=== PATIENT | female | born 2000 | race Caucasian/White ===

== ENCOUNTER 2025-06-02 20:31 | Emergency (ER) | payer OTHER ==
[~2025-06-02] VITALS: Ht 167.6 cm; Wt 65.0 kg
[2025-06-02 20:34] VITALS: BP 151/107; PULSE 83; RESP 14; TEMP 98.2; O2SAT 100
[2025-06-02] MEDS: ACETAMINOPHEN 500MG TABLET PO ONE (22:02)
[2025-06-02 22:38] LABS: HCG SCREEN NEGATIVE
[2025-06-03 00:23] LABS: CLARITY URINE CLEAR (CLEAR); COLOR URINE YELLOW (YELLOW); GLUCOSE URINE NEGATIVE (NEGATIVE); KETONES URINE NEGATIVE (NEGATIVE); LEUKOCYTE ESTERASE URINE 3+ (NEGATIVE); NITRITE URINE NEGATIVE (NEGATIVE); OCCULT BLOOD URINE 2+ (NEGATIVE); PH URINE 6.5 (4.5-8.0); PROTEIN URINE NEGATIVE (NEGATIVE); SPECIFIC GRAVITY URINE 1.002 (1.005-1.030); UROBILINOGEN URINE 0.2 E.U./dL (0.2-1.0)
[2025-06-03] MEDS ORDERED: METR-167 MT (00:25)
[2025-06-03 00:29] LABS: BACTERIA URINE 1+; SQUAMOUS EPITHELIAL CELL URINE FEW /lpf (RARE/1+)
[2025-06-03] MEDS ORDERED: CEPH500C2 MT (00:37)
[2025-06-04 04:07] LABS: HSV TYPE 2 SPECIFIC AB IGG Non Reactive (Non Reactive)
[2025-06-05 04:07] LABS: CHLAMYDIA TRACHOMATIS NAA Negative (Negative); NEISSERIA GONORRHOEAE NAA Negative (Negative)
== END 2025-06-03 01:05 | disposition home or self-care (01) ==
LOC: ER 20:31
DX: A59.01 Trichomonal vulvovaginitis (principal); B37.31 Acute candidiasis of vulva and vagina; Z11.3 Encounter for screening for infections with a predominantly sexual mode of transmission; Z79.899 Other long term (current) drug therapy
CPT/HCPCS: 36415; 81003; 81025; 84703; 86592; 86695; 86696; 87210; 87491; 87591; 99283